=== PATIENT | female | born 1965 | race Caucasian/White ===

== ENCOUNTER → 2017-11-01 | Day surgery (SDC) | payer OTHER | END | disposition home or self-care (01) | LOC: ADM 10-29 12:45 → AMB-ENDOS 07:45 → CIR.AMB 12:45 → AMB-ENDOS 12:45 | DX: K57.30 Diverticulosis of large intestine without perforation or abscess without bleeding (principal); K64.2 Third degree hemorrhoids; K62.89 Other specified diseases of anus and rectum; Z12.11 Encounter for screening for malignant neoplasm of colon ==